=== PATIENT | male | born 1940 | race Caucasian/White ===

== ENCOUNTER → 2017-11-19 | Outpatient (CLI) | payer MEDICARE, OTHER ==
--- NOTE | 2017-11-19 14:56 | Diagnostic Imaging Report ---
PROCEDURE: X-RAY CHEST, TWO VIEWS COMPARISONS: Patients [facility], DX, CHEST 2 VIEWS, 05/22/2015, 13:13. Patients [facility], DX, CHEST 2 VIEWS, 03/02/2012, 12:59. [facility], DX, CHEST 2 VIEWS, 12/14/2013, 11:10. INDICATIONS: COUGH, SPOT ON LUNG FINDINGS: LUNGS: The lungs are mildly hyperinflated suggestive of small airways disease. Curvilinear calcification in the right upper chest is stable and suggestive of a pleural plaque. There are no infiltrates. No new findings in the lung. Pulmonary vascular markings are normal. PLEURA: No effusions or pneumothorax. HEART \T\ MEDIASTINUM: The heart is normal in size. No new findings in the mediastinum. Calcified left mediastinal mass measures 2.3 cm and is stable. BONES \T\ SOFT TISSUES: No focal osseous lesions. Soft tissues are unremarkable.. CONCLUSION: 1. Stable calcified pleural plaque. 2. Stable calcified mediastinal mass, likely lymph node. 3. Mild pulmonary hyperinflation suggestive of small airways disease. 4. No new cardiopulmonary process. Dictated by: Hallie Baig M.D. on 11/19/2017 at 14:56 Electronically approved by: Hallie Baig M.D. on 11/19/2017 at 14:56
== END ==
LOC: RAD 14:24
PROVIDERS: ATTEND Family Medicine
DX: R05 Cough (principal)
CPT/HCPCS: 71046

== ENCOUNTER 2018-05-25 09:57 | Inpatient (IN) | payer MEDICARE, OTHER ==
[~2018-05-25] VITALS: Ht 177.8 cm; Wt 95.7 kg
[2018-05-25 10:45] LABS: BASOPHILS # (AUTO) 0.1 (0.0-0.1); BASOPHILS % 0.9 % (0.0-1.0); EOSINOPHILS # (AUTO) 0.4 (0.0-0.4); EOSINOPHILS % 3.2 % (0.0-6.0); HEMATOCRIT 39.7 % (38.2-49.6); HEMOGLOBIN 12.7 g/dL (14.0-18.0); LYMPHOCYTES # (AUTO) 3.3 (1.0-3.2); LYMPHOCYTES % 25.6 % (18.0-39.1); MEAN CORPUSCULAR HEMOGLOBIN 28.5 pg (28-32); MONOCYTES # (AUTO) 0.8 (0.2-0.8); MONOCYTES % 6.2 % (4.4-11.3); NEUTROPHILS # (AUTO) 8.1 (2.1-6.9); NEUTROPHILS % 63.5 % (38.7-80.0); PLATELET COUNT 351 x10e3/uL (140-360); RED BLOOD COUNT 4.46 x10e6/uL (4.3-5.7); RED CELL DISTRIBUTION WIDTH 13.4 % (11.7-14.4)
[2018-05-25 10:49] LABS: INR 1.24; PROTHROMBIN TIME 14.7 seconds (11.9-14.5)
[2018-05-25 10:50] LABS: PARTIAL THROMBOPLASTIN TIME 25.7 seconds (23.8-35.5)
[2018-05-25 11:00] LABS: ALBUMIN 3.3 g/dL (3.5-5.0); ALBUMIN/GLOBULIN RATIO 1.1 (0.8-2.0); ANION GAP 13.7 mmol/L (8-16); CALCIUM 9.3 mg/dL (8.4-10.2); CREATININE, SERUM 1.27 mg/dL (0.72-1.25); POTASSIUM 3.7 mmol/L (3.5-5.1)
[2018-05-25 11:06] LABS: CREATINE KINASE MB 7.8 ng/mL (0-5.0)
[2018-05-25] MEDS ORDERED: SODIUM CHLORIDE 0.9% 500ML 500 ML IV ONE (11:45)
--- NOTE | 2018-05-25 12:32 | Diagnostic Imaging Report ---
EXAMINATION: CHEST 2 VIEWS INDICATION: \S\ORDER PLACED BY \[id number] \S\1114 \S\Y COMPARISON: Chest radiograph 11/19/2017 FINDINGS: PA and lateral views TUBES and LINES: None. LUNGS: Lungs are well inflated. Bilateral interstitial edema. More confluent reticular opacities in the left lower lobe. Subsegmental atelectasis in both lung bases. PLEURA: No pleural effusion or pneumothorax. HEART AND MEDIASTINUM: The cardiomediastinal silhouette is unremarkable. BONES AND SOFT TISSUES: No acute osseous lesion. Soft tissues are unremarkable. UPPER ABDOMEN: No free air under the diaphragm. IMPRESSION: Bilateral interstitial edema. More confluent reticular opacities in the left lower lobe may represent superimposed infection. Continue to follow-up. Signed by: Dr. Gisell Ashley M.D. on 05/25/2018 12:28 PM
[2018-05-25] MEDS ORDERED: SODIUM CHLORIDE 0.9% 500ML 500 ML ONE (13:06)
[2018-05-25] MEDS ORDERED: AZITHROMYCIN 500MG/NS 250 ML 250 ML IV STA (13:18)
--- NOTE | 2018-05-25 13:20 | Cardiology Report ---
DATE OF STUDY: May 25, 2018 DOPPLER SCAN OF THE RIGHT LEG VEINS ATTENDING PHYSICIAN: Dr. Jovita Zamora. The right posterior tibial veins were poorly visualized. Elsewhere in the right leg, the veins appear to be compressible without definite deep venous thrombosis. The left leg was not studied. CONCLUSIONS: 1. The right leg below the knee is poorly visualized, particularly in the right posterior tibial veins. Deep venous thrombosis in these areas cannot be completely excluded. 1. Elsewhere in the right leg, there were no definite deep venous thromboses. 2. The left leg was not studied. Job#: [id number] EV cc:JOVITA ZAMORA MD
[2018-05-25 13:30] LABS: CLARITY,URINE CLEAR (CLEAR); COLOR,URINE YELLOW (YELLOW); LEUKOCYTE ESTERASE ,URINE TRACE (NEGATIVE)
[2018-05-25] MEDS ORDERED: FUROSEMIDE INJ 10 MG/ML 4 ML VIAL IV ONE (13:30)
[2018-05-25] MEDS ORDERED: SODIUM CHLORIDE FLUSH 10 ML SYR INJ PRN (13:30)
[2018-05-25] MEDS ORDERED: CEFTRIAXONE SOD 1 GM VIAL IV ONE (13:30)
[2018-05-25 13:31] LABS: BILIRUBIN,URINE NEGATIVE (NEGATIVE); EPITHELIAL CELLS,URINE RARE /LPF; KETONES,URINE NEGATIVE (NEGATIVE); NITRITE,URINE NEGATIVE (NEGATIVE); PROTEIN,URINE DIPSTICK NEGATIVE (NEGATIVE); URINE UROBILINOGEN 0.2 mg/dL (0.2 - 1); WBC,URINE (MAN) 0-5 /HPF (0-5)
[2018-05-25 19:14] LABS: CREATINE KINASE MB 6.9 ng/mL (0-5.0)
[2018-05-25 20:00] VITALS: BP 188/86
[2018-05-25] MEDS: FUROSEMIDE INJ 10 MG/ML 4 ML VIAL IV SCH (20:09)
[2018-05-25] MEDS: METOPROLOL TARTRATE 25 MG TAB PO SCH (21:20)
[2018-05-26] VITALS (7 sets, daily range): BP systolic 148–174; BP diastolic 67–83
[2018-05-26 05:42] LABS: BASOPHILS # (AUTO) 0.1 (0.0-0.1); BASOPHILS % 0.9 % (0.0-1.0); EOSINOPHILS # (AUTO) 0.6 (0.0-0.4); EOSINOPHILS % 4.4 % (0.0-6.0); HEMATOCRIT 39.4 % (38.2-49.6); HEMOGLOBIN 12.6 g/dL (14.0-18.0); LYMPHOCYTES # (AUTO) 3.7 (1.0-3.2); LYMPHOCYTES % 28.5 % (18.0-39.1); MEAN CORPUSCULAR HEMOGLOBIN 28.4 pg (28-32); MEAN CORPUSCULAR VOLUME 88.7 fL (81-99); MONOCYTES # (AUTO) 1.1 (0.2-0.8); MONOCYTES % 8.1 % (4.4-11.3); NEUTROPHILS # (AUTO) 7.5 (2.1-6.9); NEUTROPHILS % 57.6 % (38.7-80.0); PLATELET COUNT 321 x10e3/uL (140-360); RED BLOOD COUNT 4.44 x10e6/uL (4.3-5.7); RED CELL DISTRIBUTION WIDTH 13.8 % (11.7-14.4)
[2018-05-26 06:12] LABS: ALBUMIN 3.2 g/dL (3.5-5.0); ALBUMIN/GLOBULIN RATIO 1.1 (0.8-2.0); ANION GAP 13.6 mmol/L (8-16); CALCIUM 9.2 mg/dL (8.4-10.2); CREATININE, SERUM 1.32 mg/dL (0.72-1.25); POTASSIUM 3.6 mmol/L (3.5-5.1)
--- NOTE | 2018-05-26 06:27 | Diagnostic Imaging Report ---
CHEST SINGLE (PORTABLE), 05/26/2018 7:00 AM Technique: CHEST SINGLE (PORTABLE) Comparison: 05/25/2018 Clinical history: Shortness of breath Findings: See Impression Impression: 1. Stable prominent cardiac silhouette. 2. Diffuse interstitial opacities, favor edema. 3. Suspected trace pleural effusions. Signed by: Dr Chiqui Sarmiento MD on 05/26/2018 6:24 AM
[2018-05-26 06:36] LABS: CREATINE KINASE MB 5.3 ng/mL (0-5.0)
[2018-05-26] MEDS: FUROSEMIDE INJ 10 MG/ML 4 ML VIAL IV SCH ×2 (09:40→17:14)
[2018-05-26] MEDS: METOPROLOL TARTRATE 25 MG TAB PO SCH ×2 (09:40→21:33)
[2018-05-26] MEDS: LOSARTAN POTASSIUM 100 MG TAB PO SCH (12:31)
--- NOTE | 2018-05-26 13:40 | Consultation ---
DATE OF CONSULTATION: May 26, 2018 CARDIOLOGY CONSULTATION ATTENDING PHYSICIAN: Dr. Juan R Thompson. CHIEF COMPLAINT: Mr. Monte is a pleasant 78-year-old man known to me for many years, who presented to the emergency room on the with a complaint of shortness of breath. HISTORY OF PRESENT ILLNESS: The patient is a relatively poor historian and reports that he has become progressively short of breath in the last week or so. Denied any chest pain or palpitations. No fever or chills. He adds that he decided he would start using his CPAP machine, which he has at home for sleep apnea but really does not use at all. PAST MEDICAL HISTORY: Complex including hypertension, hyperlipidemia. He had polio at age 6 affecting his left leg. He had coronary stents placed in 2006 and longstanding hypertension. He has been exposed to asbestos at work. He was hospitalized at [facility] in 2006 for "congestive heart failure" but evidently was significant also for renal insufficiency in 2008. FAMILY HISTORY: Both parents are . Mother lived to be age 98. HOME MEDICATIONS: Included bupropion 300 mg once a day, omeprazole 40 mg daily, allopurinol 300 mg daily, furosemide 40 mg daily, atorvastatin changed to Antara/fenofibrate, clopidogrel 75 mg daily, carvedilol 3.125 mg twice a day, and valsartan-hydrochlorothiazide 160/25. He has previously used albuterol and Flovent. REVIEW OF SYSTEMS: GENERAL: Patient reports he has gained some considerable weight from snacking frequently and naturally with reduced mobility. CARDIAC: He denies that he had ankle edema but has trouble seeing his feet due to his central obesity. Does not trim his nails and wears house shoes at home. PHYSICAL EXAMINATION: GENERAL: At this time shows an obese man with shoulder-length hair, sitting up at bedside after filling his urinal. VITALS: Blood pressure is 158/72. Pulse is 70 and regular. HEENT: Otherwise unremarkable. THORAX: Heart sounds S1 and S2 are equal. No murmurs. Lungs have faint crackles at the bases. ABDOMEN: Markedly protuberant. EXTREMITIES: Have 4+ edema of his ankles and both feet. His left heel is in a foot protector. PERTINENT LABORATORY DATA: Shows BNP is 252 and 234. Troponins are normal times 3. His creatinine is reported at 1.27 and 1.3. Blood culture is reported positive for gram positive cocci. ASSESSMENT: 1. Clinical congestive heart failure with previous echocardiogram showing ejection fraction of 55% to 60%. 2. Hypertension. 3. Renal insufficiency, mild. 4. Sleep apnea and noncompliant, not previously using continuous positive airway pressure until the last week or so. 5. Obesity. 6. Gram-positive blood cultures. PLAN: Agree with diuresis, antibiotics, and resuming nasal CPAP for sleep. Will elevate legs and monitor hypertension. Will check echocardiogram. Thank you for asking me to see him in consultation. Job#: [id number] EV cc:MD EZEKIEL PUGA MD
[2018-05-26] MEDS: CEFTRIAXONE SOD 1 GM VIAL IV SCH (13:55)
[2018-05-26] MEDS ORDERED: SODIUM CHLORIDE 0.9% 250ML 250 ML ONE (14:39)
[2018-05-26] MEDS: AZITHROMYCIN 250MG/NS 100 ML 100 ML IV SCH (15:06)
[2018-05-26] MEDS: ACETAMINOPHEN 325 MG TAB PO PRN (20:00)
[2018-05-27] VITALS (9 sets, daily range): BP systolic 109–170; BP diastolic 53–89
[2018-05-27] MEDS: ACETAMINOPHEN 325 MG TAB PO PRN ×2 (02:30→12:53)
[2018-05-27 05:42] LABS: BASOPHILS # (AUTO) 0.2 (0.0-0.1); BASOPHILS % 0.8 % (0.0-1.0); EOSINOPHILS # (AUTO) 0.6 (0.0-0.4); EOSINOPHILS % 3.5 % (0.0-6.0); HEMOGLOBIN 13.6 g/dL (14.0-18.0); LYMPHOCYTES # (AUTO) 4.8 (1.0-3.2); LYMPHOCYTES % 26.9 % (18.0-39.1); MEAN CORPUSCULAR HEMOGLOBIN 28.4 pg (28-32); MEAN CORPUSCULAR HGB CONC 31.6 g/dL (31-35); MEAN CORPUSCULAR VOLUME 89.8 fL (81-99); MONOCYTES # (AUTO) 1.5 (0.2-0.8); MONOCYTES % 8.2 % (4.4-11.3); NEUTROPHILS # (AUTO) 10.7 (2.1-6.9); PLATELET COUNT 328 x10e3/uL (140-360); RED BLOOD COUNT 4.79 x10e6/uL (4.3-5.7); RED CELL DISTRIBUTION WIDTH 13.8 % (11.7-14.4)
[2018-05-27 06:11] LABS: ANION GAP 14.4 mmol/L (8-16); CALCIUM 9.7 mg/dL (8.4-10.2); CREATININE, SERUM 1.34 mg/dL (0.72-1.25); POTASSIUM 3.4 mmol/L (3.5-5.1)
[2018-05-27] MEDS: METOPROLOL TARTRATE 25 MG TAB PO SCH ×2 (09:00→20:42)
[2018-05-27] MEDS: FUROSEMIDE INJ 10 MG/ML 4 ML VIAL IV SCH ×2 (09:26→17:22)
[2018-05-27] MEDS: LOSARTAN POTASSIUM 100 MG TAB PO SCH (09:26)
[2018-05-27] MEDS: CEFTRIAXONE SOD 1 GM VIAL IV SCH (12:53)
[2018-05-27] MEDS ORDERED: SODIUM CHLORIDE 0.9% 250ML 250 ML ONE (16:43)
[2018-05-27] MEDS ORDERED: POTASSIUM CHLORIDE 20 MEQ TAB CR PO STA (16:52)
[2018-05-27] MEDS: AZITHROMYCIN 250MG/NS 100 ML 100 ML IV SCH (17:22)
[2018-05-28] VITALS (7 sets, daily range): BP systolic 109–161; BP diastolic 63–79
[2018-05-28] MEDS: ACETAMINOPHEN 325 MG TAB PO PRN (02:45)
[2018-05-28 05:17] LABS: BASOPHILS # (AUTO) 0.1 (0.0-0.1); BASOPHILS % 0.6 % (0.0-1.0); EOSINOPHILS # (AUTO) 0.4 (0.0-0.4); EOSINOPHILS % 2.7 % (0.0-6.0); HEMATOCRIT 38.6 % (38.2-49.6); HEMOGLOBIN 12.3 g/dL (14.0-18.0); LYMPHOCYTES # (AUTO) 3.4 (1.0-3.2); LYMPHOCYTES % 20.9 % (18.0-39.1); MEAN CORPUSCULAR HEMOGLOBIN 28.1 pg (28-32); MEAN CORPUSCULAR HGB CONC 31.9 g/dL (31-35); MEAN CORPUSCULAR VOLUME 88.1 fL (81-99); MONOCYTES # (AUTO) 1.5 (0.2-0.8); MONOCYTES % 9.4 % (4.4-11.3); NEUTROPHILS # (AUTO) 10.6 (2.1-6.9); NEUTROPHILS % 65.3 % (38.7-80.0); PLATELET COUNT 309 x10e3/uL (140-360); RED BLOOD COUNT 4.38 x10e6/uL (4.3-5.7); RED CELL DISTRIBUTION WIDTH 14.1 % (11.7-14.4)
[2018-05-28 05:49] LABS: ANION GAP 14.5 mmol/L (8-16); CALCIUM 9.5 mg/dL (8.4-10.2); CREATININE, SERUM 1.19 mg/dL (0.72-1.25); POTASSIUM 3.5 mmol/L (3.5-5.1)
[2018-05-28 07:30] LABS: EOSINOPHILS % (MANUAL) 5 % (0-7); LYMPHOCYTES % (MANUAL) 12 % (19-48); MONOCYTES % (MANUAL) 6 % (3.4-9.0); NEUTROPHILS % (MANUAL) 77 % (40-74)
[2018-05-28 07:31] LABS: HYPOCHROMASIA SLIGHT; RBC MORPHOLOGY COMMENT NORMAL
[2018-05-28 07:32] LABS: ANISOCYTOSIS SLIGHT; PLATELET ESTIMATE ADEQUATE; PLATELET MORPHOLOGY COMMENT NORMAL
[2018-05-28] MEDS: METOPROLOL TARTRATE 25 MG TAB PO SCH ×2 (07:59→21:00)
[2018-05-28] MEDS: FUROSEMIDE INJ 10 MG/ML 4 ML VIAL IV SCH ×2 (07:59→16:14)
[2018-05-28] MEDS: LOSARTAN POTASSIUM 100 MG TAB PO SCH (07:59)
--- NOTE | 2018-05-28 08:06 | Consultation ---
DATE OF CONSULTATION: May 28, 2018 REASON FOR CONSULTATION: Bilateral foot examination. HISTORY OF PRESENT ILLNESS: This is a 78-year-old man with a past medical history of hypertension, hyperlipidemia, congestive heart failure, who was admitted through the emergency room for shortness of breath. He has been admitted for workup. Podiatry has been consulted for long thickened toenails and general foot evaluation. The patient currently denies nausea, vomiting, fever, chills, chest pain, but does complain of shortness of breath. PAST MEDICAL HISTORY: Hypertension, hyperlipidemia, polio. FAMILY HISTORY: Noncontributory. MEDICATIONS: Per the chart. ALLERGIES: NO KNOWN ALLERGIES. REVIEW OF SYSTEMS: The patient currently relates his shortness of breath, but denies nausea, vomiting, fever, chills, or chest pain. PHYSICAL EXAMINATION GENERAL: Alert and oriented times 3 and in no apparent distress. VITAL SIGNS: Today, temperature is 98, heart rate 60, respiratory rate 18, blood pressure 109/74, pulse ox 97% on room air. LOWER EXTREMITY PHYSICAL EXAMINATION VASCULAR: Dorsalis pedis and posterior tibial pulses are faintly palpable. Capillary refill time is approximately 4-5 seconds to all digits. Moderate edema is noted to the left lower extremity. Negative erythema. Negative warmth. NEUROLOGICAL: Sensation appears to be intact to bilateral lower extremities to light touch. MUSCULOSKELETAL: Muscle atrophy to the left lower extremity distal to the knee joint. DERMATOLOGIC: Nails are thickened, dystrophic, yellow with subungual debris. There is dry, flaky xerosis to bilateral lower extremities. LABS: White blood cell count is 16.2, hemoglobin 12.3, hematocrit 38.6, and platelet count is 309,000. Sodium 142, potassium 3.5, chloride 99, CO2 32, BUN 18, creatinine 1.1, glucose 109. ASSESSMENT 1. Onychomycosis with severe xerosis. 2. Congestive heart failure. 3. Hypertension. PLAN: The patient was seen and evaluated. Discussed condition and treatment options with the patient in detail. Discussed with the patient will bring instrumentation for nail debridement and perform either later this afternoon or early tomorrow morning. There are no local acute signs of infection to bilateral lower extremities. The patient has polio to the left lower extremity, which resulted in muscle atrophy and weakness. Discussed with the patient long-term care. The patient will need regular long-term care in the office as far as nail debridements and possible bracing to the left lower extremity. The podiatry service will continue to monitor as an inpatient. Job#: [id number] RI
[2018-05-28] MEDS ORDERED: FUROSEMIDE40 MG PO (12:23)
[2018-05-28] MEDS ORDERED: PLAVIX75 MG PO (12:27)
[2018-05-28] MEDS ORDERED: ALLOPURINOL300 MG PO (12:27)
[2018-05-28] MEDS ORDERED: HYDROCHLOROTHIA25 MG PO (12:27)
[2018-05-28] MEDS ORDERED: BUPROPION XL150 MG PO (12:27)
[2018-05-28] MEDS ORDERED: VITAMIN D1000 UNI1 PO (12:27)
[2018-05-28] MEDS ORDERED: DIOVAN160 MG PO (12:27)
[2018-05-28] MEDS: AZITHROMYCIN 250MG/NS 100 ML 100 ML IV SCH (13:17)
[2018-05-28] MEDS: CEFTRIAXONE SOD 1 GM VIAL IV SCH (13:17)
[2018-05-28] MEDS ORDERED: NORCO 10-325 T1 EACH PO (15:18)
[2018-05-28] MEDS: HYDROCODONE/APAP 10MG-325MG TAB PO PRN ×2 (16:15→23:08)
--- NOTE | 2018-05-28 17:15 | Diagnostic Imaging Report ---
LEFT ELBOW - 3 VIEWS HISTORY: Pain, status post fall 5 weeks ago COMPARISON: None available. FINDINGS: Bones: No acute displaced fracture. Small olecranon and medial humeral epicondyle enthesophyte. Joints: Moderate degenerative changes of the elbow. Soft tissues: Nonspecific soft tissue swelling overlying the olecranon process. Punctate nonspecific calcification medial to the distal humerus, likely the sequela of remote trauma. IMPRESSION: 1. Dorsal soft tissue prominence, correlate for olecranon bursitis. 2. Moderate osteoarthrosis. 3. Chronic enthesopathic changes. Signed by: Dr. James Novak D.O., M.M.M. on 05/28/2018 5:11 PM
[2018-05-28] MEDS ORDERED: ERTAPENEM 1GM/NS 100ML 100 ML IV SCH (17:30)
[2018-05-28] MEDS: ERTAPENEM 1GM/NS 100ML 100 ML IV SCH (18:43)
[2018-05-29] VITALS (8 sets, daily range): BP systolic 132–170; BP diastolic 59–74
[2018-05-29] MEDS: HYDROCODONE/APAP 10MG-325MG TAB PO PRN ×3 (05:10→20:58)
[2018-05-29 06:05] LABS: BASOPHILS # (AUTO) 0.1 (0.0-0.1); BASOPHILS % 0.9 % (0.0-1.0); EOSINOPHILS # (AUTO) 0.5 (0.0-0.4); EOSINOPHILS % 3.7 % (0.0-6.0); HEMATOCRIT 38.1 % (38.2-49.6); HEMOGLOBIN 11.9 g/dL (14.0-18.0); LYMPHOCYTES # (AUTO) 3.9 (1.0-3.2); LYMPHOCYTES % 26.8 % (18.0-39.1); MEAN CORPUSCULAR HEMOGLOBIN 27.7 pg (28-32); MEAN CORPUSCULAR HGB CONC 31.2 g/dL (31-35); MEAN CORPUSCULAR VOLUME 88.8 fL (81-99); MONOCYTES # (AUTO) 1.7 (0.2-0.8); MONOCYTES % 11.6 % (4.4-11.3); NEUTROPHILS # (AUTO) 8.2 (2.1-6.9); NEUTROPHILS % 56.6 % (38.7-80.0); PLATELET COUNT 269 x10e3/uL (140-360); RED BLOOD COUNT 4.29 x10e6/uL (4.3-5.7); RED CELL DISTRIBUTION WIDTH 14.1 % (11.7-14.4)
[2018-05-29 06:22] LABS: ANION GAP 13.5 mmol/L (8-16); CALCIUM 9.6 mg/dL (8.4-10.2); CREATININE, SERUM 1.2 mg/dL (0.72-1.25); POTASSIUM 3.5 mmol/L (3.5-5.1)
--- NOTE | 2018-05-29 08:18 | Progress Note ---
DATE: May 29, 2018 SUBJECTIVE: This is a 78-year-old male with past medical history of hypertension, hyperlipidemia, congestive heart failure, who was admitted through the emergency room for shortness of breath. Podiatry was consulted yesterday for long, thickened nails. I am here today for debridement of the toenails. The patient has no nausea, vomiting, fever, chills, chest pain or shortness of breath today. He relates significant improvement. No acute issues overnight. OBJECTIVE: Vital signs today: Temperature is 97.8, heart rate 66, respiratory rate 18, blood pressure 132/59. Pulse ox is 97% on 2 L nasal cannula. PROBLEM-FOCUSED LOWER EXTREMITY PHYSICAL EXAMINATION VASCULAR: Dorsalis pedis and posterior tibial pulses are faintly palpable. Capillary refill time is approximately 4-5 seconds to all digits. Moderate edema is noted to the left lower extremity. Negative erythema. Negative warmth. NEUROLOGICAL: Sensation appears to be intact to bilateral lower extremities. MUSCULOSKELETAL: Muscle atrophy to the left lower extremity distal to the knee joint. DERMATOLOGIC: Nails are thickened, dystrophic, yellow with subungual debris. There is dry, flaky xerosis to bilateral lower extremities. LABS: White blood cell count is 14.4, hemoglobin 11.9, hematocrit 38.1, and platelet count is 269. Sodium 142, potassium 3.5, chloride 101, BUN 21, creatinine 1.2. ASSESSMENT 1. Onychomycosis with severe xerosis. 2. Congestive heart failure. 3. Hypertension. PLAN: The patient was seen and evaluated. Discussed condition and treatment options with the patient in detail. The nails were trimmed and debrided in length and thickness 1 through 5 bilateral. Prior to that, the feet were prepped with alcohol. Post, they were cleansed with Hibiclens scrub. I discussed with the patient that I would recommend routine followup care for nail debridements approximately once every 3 to 4 months. The patient is stable from a podiatry standpoint to be discharged. Podiatry will be signing off. Please reconsult if necessary. Job#: [id number]
[2018-05-29] MEDS: FUROSEMIDE INJ 10 MG/ML 4 ML VIAL IV SCH ×2 (09:25→17:23)
[2018-05-29] MEDS: LOSARTAN POTASSIUM 100 MG TAB PO SCH (09:25)
[2018-05-29] MEDS: METOPROLOL TARTRATE 25 MG TAB PO SCH ×2 (09:26→20:58)
[2018-05-29 09:29] LABS: EOSINOPHILS % (MANUAL) 4 % (0-7); LYMPHOCYTES % (MANUAL) 17 % (19-48); MONOCYTES % (MANUAL) 10 % (3.4-9.0); NEUTROPHILS % (MANUAL) 67 % (40-74); PLATELET ESTIMATE ADEQUATE
[2018-05-29 09:30] LABS: ANISOCYTOSIS MODERATE; PLATELET MORPHOLOGY COMMENT FEW GIANT; POIKILOCYTOSIS SLIGHT; RBC MORPHOLOGY COMMENT NORMAL
--- NOTE | 2018-05-29 11:45 | Diagnostic Imaging Report ---
EXAMINATION: PA and lateral views of the chest. COMPARISON: Portable chest 05/26/2018 and chest two views 05/25/2018 CLINICAL HISTORY: Shortness of breath DISCUSSION: Lines/tubes: None. Lungs: The lungs are well inflated. Patchy opacity in the right lower lobe, likely reflects atelectasis. There is no evidence of consolidation or pulmonary edema. Pleura: Blunting of the right and left posterior costophrenic sulci. Heart and mediastinum: Cardiac silhouette is borderline enlarged. Pulmonary vasculature is normal. Bones and soft tissues: No acute bony abnormalities. Degenerative changes in the thoracic spine IMPRESSION: 1. Blunting of the right and left posterior costophrenic sulci, likely reflecting small volume pleural effusions. 2. Patchy right lower lobe atelectatic changes. Signed by: Dr. Brandon Vega M.D. on 05/29/2018 11:42 AM
[2018-05-29] MEDS: AZITHROMYCIN 250MG/NS 100 ML 100 ML IV SCH (14:10)
[2018-05-29] MEDS: CEFTRIAXONE SOD 1 GM VIAL IV SCH (14:14)
[2018-05-29] MEDS: ERTAPENEM 1GM/NS 100ML 100 ML IV SCH (18:54)
[2018-05-30 00:49] VITALS: BP 137/62
[2018-05-30] MEDS: HYDROCODONE/APAP 10MG-325MG TAB PO PRN ×2 (04:15→11:15)
[2018-05-30 05:53] VITALS: BP 161/72
[2018-05-30 07:25] VITALS: BP 164/72
[2018-05-30 07:46] VITALS: BP 164/72
[2018-05-30] MEDS: FUROSEMIDE INJ 10 MG/ML 4 ML VIAL IV SCH (09:15)
[2018-05-30] MEDS: LOSARTAN POTASSIUM 100 MG TAB PO SCH (09:16)
[2018-05-30] MEDS: METOPROLOL TARTRATE 25 MG TAB PO SCH (09:16)
[2018-05-30 11:25] VITALS: BP 137/75
[2018-05-30] MEDS: CEFTRIAXONE SOD 1 GM VIAL IV SCH (13:30)
[2018-05-30] MEDS: AZITHROMYCIN 250MG/NS 100 ML 100 ML IV SCH (13:45)
--- NOTE | 2018-05-30 14:37 | Discharge Summary ---
ADMIT DIAGNOSES 1. Ocayq-iu-irkquqf diastolic congestive heart failure. 2. Hypertensive heart disease. 3. Sepsis secondary to urinary tract infection. 4. Sepsis secondary to left lower lobe pneumonia. 5. Tmkcj-vj-nnqezuv renal failure. 6. Postpolio syndrome. DISCHARGE DIAGNOSES 1. Sepsis secondary to Proteus mirabilis urinary tract infection, resolving. 2. Proteus mirabilis urinary tract infection. 3. Left lower lobe pneumonia, likely gram-negative jazmyn, resolving. 4. Iujme-yq-hglkuwo renal failure, resolving. 5. Aflnu-vn-ixrgfvs diastolic congestive heart failure (preserved left ventricular ejection fraction). 6. Hypertensive heart disease. 7. Postpolio syndrome. HOSPITAL COURSE: This is a 78-year-old white man who was initially admitted to [facility] with a diagnosis of unzue-ki-pmrbpvt diastolic congestive heart failure and sepsis from a urinary tract infection. During this hospitalization, the patient was diagnosed with left lower lobe pneumonia likely gram-negative jazmyn in etiology. The patient improved clinically with intravenous antibiotics, namely ertapenem, ceftriaxone and azithromycin. During this hospitalization, urine culture did reveal the presence of Proteus mirabilis, which was actually found to be pansensitive. The antibiotic with the lowest minimal inhibitory concentration was actually ceftriaxone. During this hospitalization, blood cultures did reveal gram-positive cocci in clusters, but the growth revealed staphylococcus species coagulase-negative, which was thought to be perhaps a skin contaminate. During this hospitalization, the patient had a 2-D echocardiogram which revealed a preserved left ventricular ejection fraction of 55% to 60%. He was seen by helper marble finisher during this hospitalization, namely Dr. Hamilton Carmona. The patient's hospitalization was unremarkable. The patient's condition on discharge was stable. DISCHARGE MEDICATIONS 1. Hydrocodone with acetaminophen 10 per 325 mg 1 every 6 hours p.r.n. pain. 2. Losartan 50 mg a day. 3. Metoprolol tartrate 25 mg b.i.d. 4. Furosemide 40 mg intravenous b.i.d. 5. Ertapenem 1 g intravenously daily. 6. Ceftriaxone 1 g intravenously every 24 hours. 7. Azithromycin 500 mg intravenously every 24 hours. 8. Acetaminophen 650 mg p.o. q.4 h. p.r.n. pain and fever. FOLLOWUP INSTRUCTIONS: As previously stated, the patient will be transferred to a local long-term acute care facility, namely [facility] where the patient can be treated with intravenous antibiotics in regards to her Proteus mirabilis urinary tract infection and left lower lobe gram-negative pneumonia. Also, the patient will receive intravenous furosemide for his bfvtv-ea-wdmcmwu congestive heart failure. BRISEIDA NERI MD Job#: [id number] RI cc: MD EDDIE PUGA MD MTDD
[2018-05-30 15:52] VITALS: BP 103/51
--- OUTSIDE RECORDS SUMMARY | 2018-06-25 05:45 | XMS REPORT ---
Author Author [facility] Address Unknown Phone Unavailable Care Team Providers Care Flow Coordinator Name Role Phone MILY BOOGIE Unavailable Unavailable EZEKIEL OWEN Unavailable Unavailable Problems This patient has no known problems. Allergies, Adverse Reactions, Alerts This patient has no known allergies or adverse reactions. Medications This patient has no known medications. Results Test Description Test Time Test Comments Text Results Atomic Results Result Comments CHEST 2 VIEWS 2018-05-29 11:39:00 [place] [address] Patient Name: DAY DELA CRUZ MR #: [id number] : 1940 Age/Sex: 78/M Req #: [id number] [facility] Physician: MILY BOOGIE MD Ordered by: MILY BOOGIE MD Report #: [id number] Location: [facility] Room/Bed: [facility] Procedure: [id number] DX/CHEST 2 VIEWS Exam Date: 04/08 Exam Time: 1115 REPORT STATUS: Signed EXAMINATION: PA and lateral views of the chest. COMPARISON: Portable chest 05/26/2018 and chest two views 05/25/2018 CLINICAL HISTORY: Shortness of breath DISCUSSION: Lines/tubes: None. Lungs: The lungs are well inflated. Patchy opacity in the right lower lobe, likely reflects atelectasis. There is no evidence of consolidation or pulmonary edema. Pleura: Blunting of the right and left posterior costophrenic sulci. Heart and mediastinum: Cardiac silhouette is borderline enlarged. Pulmonary vasculature is normal. Bones and soft tissues: No acute bony abnormalities. Degenerative changes in the thoracic spine IMPRESSION: 1. Blunting of the right and left posterior costophrenic sulci, likely reflecting small volume pleural effusions. 2. Patchy right lower lobe atelectatic changes. Signed by: Dr. Brandon Vega M.D. on 05/29/2018 11:42 AM Dictated By: BRANDON VEGA MD 1142 Transcribed By: TIMOTHY on 05/29/18 1142 COPY TO: MILY BOOGIE MD ELBOW LEFT COMPLETE 2018-05-28 17:08:00 [place] [address] Patient Name: DAY DELA CRUZ MR #: [id number] : 1940 Age/Sex: 78/M Req #: [id number] Adm Physician: MILY BOOGIE MD Ordered by: EDDIE DIAZ MD Report #: [id number] Location: [facility] Room/Bed: [facility] Procedure: [id number] DX/ELBOW LEFT COMPLETE Exam Date: 05/28/18 Exam Time: 1630 REPORT STATUS: Signed LEFT ELBOW - 3 VIEWS HISTORY: Pain, status post fall 5 weeks ago COMPARISON: None available. FINDINGS: Bones: No acute displaced fracture. Small olecranon and medial humeral epicondyle enthesophyte. Joints: Moderate degenerative changes of the elbow. Soft tissues: Nonspecific soft tissue swelling overlying the olecranon process. Punctate nonspecific calcification medial to the distal humerus, likely the sequela of remote trauma. IMPRESSION: 1. Dorsal soft tissue prominence, correlate for olecranon bursitis. 2. Moderate osteoarthrosis. 3. Chronic enthesopathic changes. Signed by: Dr. James Novak D.O., M.M.M. on 05/28/2018 5:11 PM Dictated By: JAMES NOVAK DO 10 Transcribed By: TIMOTHY on 05/28/181710 COPY TO: EDDIE DIAZ MD CHEST SINGLE (PORTABLE) 2018-05-26 06:22:00 [place] [address] Patient Name: DAY DELA CRUZ MR #: [id number] : 1940 Age/Sex: 78/ M Req #: [id number] Adm Physician: MILY BOOGIE MD Ordered by: LARA BURDEN ROLLER TURNER Report #: [id number] Location: MED/SURG3 Room/Bed: [facility] Procedure: [id number] DX/CHEST SINGLE ( PORTABLE) Exam Date: 05/26/18 Exam Time: 529 REPORT STATUS: Signed CHEST SINGLE (PORTABLE), 05/26/2018 7:00 AM Technique: CHEST SINGLE (PORTABLE) Comparison: 05/25/2018 Clinical history: Shortness of breath Findings: See Impression Impression: 1. Stable prominent cardiac silhouette. 2. Diffuse interstitial opacities, favor edema. 3. Suspected trace pleural effusions. Signed by: Dr Kevin Sarmiento MD on 05/26/2018 6:24 AM Dictated By: KEVIN SARMIENTO MD 3 Transcribed By: TIMOTHY on 05/26 COPY TO: LARA BURDEN ROLLER TURNER VENOUS DUPLEX LWR U/L 2018-05-25 13:00:00 [place] [address] Patient Name : DAY DELA CRUZ MR #: [id number] : 1940 Age/ Sex: 78/M Adm Physician : MILY BOOGIE MD Admit Date : 05/25/18 Location : MED/SURG3 Room/Bed : [facility] REPORT: Cardiology Report DATE OF STUDY : May 25, 2018 DOPPLER SCAN OF THE RIGHT LEG VEINS ATTENDING PHYSICIAN: Dr. Jovita Zamora. The right posterior tibial veins were poorly visualized. Elsewhere in the right leg, the veins appear to be compressible without definite deep venous thrombosis. The left leg was not studied. CONCLUSIONS: 1. The right leg below the knee is poorly visualized, particularly in the right posterior tibial veins. Deep venous thrombosis in these areas cannot be completely excluded. 1. Elsewhere in the right leg , there were no definite deep venous thromboses. 2. The left leg was not studied. Job#: [id number] EV cc: JOVITA ZAMORA MD Signature Date Dictated By: EZEQUIEL DARLING MD Transcribed By: BRANDON on 05/25/18 < Electronically signed by EZEQUIEL DARLING MD><<Signature on File>>05/26/18939 COPY TO: CHEST 2 VIEWS 2018-05-25 12:27:00 [place] [address] Patient Name: DAY DELA CRUZ MR #: [id number] : 1940 Age/Sex: 78/M Req #: [id number] Adm Physician: Ordered by: LARA BURDEN ROLLER TURNER Report #: [id number] Location: ER Room/Bed: __ Procedure: [id number] DX/CHEST 2 VIEWS Exam Date: 05/25/18 Exam Time: 1114 REPORT STATUS: Signed EXAMINATION: CHEST 2 VIEWS INDICATION: COMPARISON: Chest radiograph 11/19/2017 FINDINGS: PA and lateral views TUBES and LINES: None. LUNGS: Lungs are well inflated. Bilateral interstitial edema. More confluent reticular opacities in the left lower lobe. Subsegmental atelectasis in both lung bases. PLEURA: No pleural effusion or pneumothorax. HEART AND MEDIASTINUM: The cardiomediastinal silhouette is unremarkable. BONES AND SOFT TISSUES: No acute osseous lesion. Soft tissues are unremarkable. UPPER ABDOMEN: No free air under the diaphragm. IMPRESSION: Bilateral interstitial edema. More confluent reticular opacities in the left lower lobe may represent superimposed infection. Continue to follow-up. Signed by: Dr. Gisell Pond M.D. on 05/25/2018 12:28 PM Dictated By: GISELL POND MD 1228 Transcribed By: TIMOTHY on 05/25/18 1228 COPY TO: LARA BURDEN NP CHEST 2 VIEWS [place] [address] Patient Name: DAY DELA CRUZ MR #: [id number] : 1940 Age/Sex: 77/M Req # : [id number] Adm Physician: Ordered by: EZEKIEL OWEN MD Report #: [id number] Location: [facility] Room/Bed: Procedure: [id number] DX/CHEST 2 VIEWS Exam Date: 11/19/17 Exam Time: 1430 REPORT STATUS: Signed PROCEDURE: X-RAY CHEST, TWO VIEWS COMPARISONS: [facility], DX, CHEST 2 VIEWS, 05/22/2015, 13:13. [facility], DX, CHEST 2 VIEWS, 03/02/2012, 12:59. [facility], DX, CHEST 2 VIEWS, 12/14/2013, 11:10. INDICATIONS: COUGH , SPOT ON LUNG FINDINGS: LUNGS: The lungs are mildly hyperinflated suggestive of small airways disease. Curvilinear calcification in the right upper chest is stable and suggestive of a pleural plaque. There are no infiltrates. No new findings in the lung. Pulmonary vascular markings are normal. PLEURA: No effusions or pneumothorax. HEART T MEDIASTINUM: The heart is normal in size. No new findings in the mediastinum. Calcified left mediastinal mass measures 2.3 cm and is stable. BONES T SOFT TISSUES: No focal osseous lesions. Soft tissues are unremarkable.. CONCLUSION: 1. Stable calcified pleural plaque. 2. Stable calcified mediastinal mass, likely lymph node. 3. Mild pulmonary hyperinflation suggestive of small airways disease. 4. No new cardiopulmonary process. Dictated by: Jolanta Baig M.D. on 2017 at 14:56 Electronically approved by: Jolanta Baig M.D. on 2017 at 14:56 Dictated By: JOLANTA BAIG MD 7256 Transcribed By : VILMA on 11/19/17 1456 COPY TO: EZEKIEL OWEN MD
== END 2018-05-30 17:15 | DRG 871 ==
LOC: ER 09:59 → ERHOLD 14:11 → MED/SURG3 15:48
PROC: 0HBRXZZ Excision of Toe Nail, External Approach (ICD-10-PCS; principal; 2018-05-29)
PROC: 0HBRXZZ Excision of Toe Nail, External Approach (ICD-10-PCS; 2018-05-29)
PROC: 0HBRXZZ Excision of Toe Nail, External Approach (ICD-10-PCS; 2018-05-29)
PROC: 0HBRXZZ Excision of Toe Nail, External Approach (ICD-10-PCS; 2018-05-29)
PROC: 0HBRXZZ Excision of Toe Nail, External Approach (ICD-10-PCS; 2018-05-29)
PROC: 0HBRXZZ Excision of Toe Nail, External Approach (ICD-10-PCS; 2018-05-29)
PROC: 0HBRXZZ Excision of Toe Nail, External Approach (ICD-10-PCS; 2018-05-29)
PROC: 0HBRXZZ Excision of Toe Nail, External Approach (ICD-10-PCS; 2018-05-29)
PROC: 0HBRXZZ Excision of Toe Nail, External Approach (ICD-10-PCS; 2018-05-29)
PROC: 0HBRXZZ Excision of Toe Nail, External Approach (ICD-10-PCS; 2018-05-29)
DX: A41.89 Other specified sepsis (principal); J15.6 Pneumonia due to other Gram-negative bacteria; I50.33 Acute on chronic diastolic (congestive) heart failure; I13.0 Hypertensive heart and chronic kidney disease with heart failure and stage 1 through stage 4 chronic kidney disease, or unspecified chronic kidney disease; N39.0 Urinary tract infection, site not specified; R65.20 Severe sepsis without septic shock; B35.1 Tinea unguium; E78.5 Hyperlipidemia, unspecified; L85.3 Xerosis cutis; N18.9 Chronic kidney disease, unspecified; G47.33 Obstructive sleep apnea (adult) (pediatric); B96.4 Proteus (mirabilis) (morganii) as the cause of diseases classified elsewhere; G14 Postpolio syndrome; Z74.09 Other reduced mobility; E66.9 Obesity, unspecified; Z68.30 Body mass index [BMI] 30.0-30.9, adult; Z91.19 Patient's noncompliance with other medical treatment and regimen; N18.3 Chronic kidney disease, stage 3 (moderate)
CPT/HCPCS: 36415; 71045; 71046; 80048; 80053; 81001; 82550; 82553; 83605; 83735; 83880; 84484; 85025; 85379; 85610; 85730; 87040; 87071; 87086; 87186; 87205; 93005; 93306; 93971; 94660; 96367; 97139; 99284; J0456; J0696; J1940; J7040; J7050

== ENCOUNTER 2020-06-12 15:24 | Inpatient (IN) | payer MEDICARE, OTHER ==
[~2020-06-12] VITALS: Ht 177.8 cm; Wt 107.8 kg
[~2020-06-12 15:24] MED LIST: ALLOPURINOL300 MG PO; BUPROPION XL150 MG PO; DIOVAN160 MG PO; FUROSEMIDE40 MG PO; HYDROCHLOROTHIA25 MG PO; NORCO 10-325 T1 EACH PO; PLAVIX75 MG PO; VITAMIN D1000 UNI1 PO
[2020-06-12 16:23] LABS: BASOPHILS # (AUTO) 0.2 (0.0-0.1); BASOPHILS % 1.2 % (0.0-1.0); EOSINOPHILS # (AUTO) 0.4 (0.0-0.4); EOSINOPHILS % 3.2 % (0.0-6.0); HEMATOCRIT 42.5 % (38.2-49.6); HEMOGLOBIN 13.2 g/dL (14.0-18.0); LYMPHOCYTES # (AUTO) 4.8 (1.0-3.2); LYMPHOCYTES % 35.1 % (18.0-39.1); MEAN CORPUSCULAR HEMOGLOBIN 28.1 pg (28-32); MEAN CORPUSCULAR HGB CONC 31.1 g/dL (31-35); MEAN CORPUSCULAR VOLUME 90.4 fL (81-99); MONOCYTES % 7.1 % (4.4-11.3); NEUTROPHILS # (AUTO) 7.2 (2.1-6.9); NEUTROPHILS % 52.7 % (38.7-80.0); PLATELET COUNT 240 x10e3/uL (140-360); RED CELL DISTRIBUTION WIDTH 15.5 % (11.7-14.4)
[2020-06-12 16:29] LABS: INR 0.98; PROTHROMBIN TIME 13.5 seconds (11.9-14.5)
[2020-06-12 16:30] LABS: PARTIAL THROMBOPLASTIN TIME 24.7 seconds (23.8-35.5)
[2020-06-12 16:38] LABS: ALBUMIN 4.3 g/dL (3.5-5.0); ALBUMIN/GLOBULIN RATIO 1.6 (0.8-2.0); ANION GAP 15.6 mmol/L (8-16); CALCIUM 9.9 mg/dL (8.4-10.2); CREATININE, SERUM 2.05 mg/dL (0.72-1.25); MAGNESIUM 1.7 MG/DL (1.3-2.1); POTASSIUM 3.6 mmol/L (3.5-5.1)
[2020-06-12 16:47] LABS: CREATINE KINASE MB 3.6 ng/mL (0-5.0)
[2020-06-12] MEDS ORDERED: ONDANSETRON HCL INJ 2MG/ML 2ML 2 MG/ML VIAL IV PRN (18:30)
[2020-06-12] MEDS ORDERED: SODIUM CHLORIDE 0.9% 1000ML 1,000 ML IV SCH (18:30)
[2020-06-12] MEDS ORDERED: CEFTRIAXONE SOD 1 GM/NS 50 ML 50 ML IV ONE (18:30)
[2020-06-12 18:36] LABS: BILIRUBIN,URINE NEGATIVE (NEGATIVE); CLARITY,URINE SL CLOUDY (CLEAR); COLOR,URINE YELLOW (YELLOW); KETONES,URINE NEGATIVE (NEGATIVE); LEUKOCYTE ESTERASE ,URINE SMALL (NEGATIVE); NITRITE,URINE NEGATIVE (NEGATIVE); PROTEIN,URINE DIPSTICK NEGATIVE (NEGATIVE); URINE UROBILINOGEN 0.2 mg/dL (0.2 - 1)
[2020-06-12 18:48] LABS: BACTERIA,URINE MANY /HPF
[2020-06-12 19:37] VITALS: BP 137/74
[2020-06-12 20:00] VITALS: BP 137/74
[2020-06-12 20:31] VITALS: BP 137/74
[2020-06-12] MEDS ORDERED: DIAZEPAM5 MG PO (22:27)
[2020-06-12] MEDS ORDERED: ACETAMINOPHEN-1 EAC4 PO (22:27)
[2020-06-12] MEDS ORDERED: OMEPRAZOLE40 MG PO (22:27)
[2020-06-12] MEDS ORDERED: METOPROLOL TART25 MG PO (22:27)
[2020-06-12] MEDS ORDERED: CARVEDILOL3.125 MG PO (22:27)
[2020-06-12] MEDS ORDERED: ATORVASTATIN CA40 MG PO (22:27)
[2020-06-12] MEDS ORDERED: ANTARA90 MG PO (22:27)
[2020-06-12] MEDS: MORPHINE SULFATE 2 MG/ML SYR 1ML IV PRN (23:34)
[2020-06-13] VITALS (8 sets, daily range): BP systolic 99–160; BP diastolic 40–68
[2020-06-13 00:24] LABS: CREATINE KINASE MB 4.1 ng/mL (0-5.0)
[2020-06-13 06:19] LABS: BASOPHILS # (AUTO) 0.2 (0.0-0.1); BASOPHILS % 1.2 % (0.0-1.0); EOSINOPHILS # (AUTO) 0.6 (0.0-0.4); EOSINOPHILS % 4.4 % (0.0-6.0); HEMATOCRIT 40.7 % (38.2-49.6); HEMOGLOBIN 12.6 g/dL (14.0-18.0); LYMPHOCYTES # (AUTO) 5.5 (1.0-3.2); LYMPHOCYTES % 39.2 % (18.0-39.1); MEAN CORPUSCULAR HEMOGLOBIN 28.7 pg (28-32); MEAN CORPUSCULAR VOLUME 92.7 fL (81-99); MONOCYTES # (AUTO) 1.1 (0.2-0.8); NEUTROPHILS # (AUTO) 6.5 (2.1-6.9); NEUTROPHILS % 46.6 % (38.7-80.0); PLATELET COUNT 219 x10e3/uL (140-360); RED BLOOD COUNT 4.39 x10e6/uL (4.3-5.7); RED CELL DISTRIBUTION WIDTH 15.5 % (11.7-14.4)
[2020-06-13 06:43] LABS: ALBUMIN/GLOBULIN RATIO 1.6 (0.8-2.0); ANION GAP 17.4 mmol/L (8-16); CALCIUM 9.3 mg/dL (8.4-10.2); CREATININE, SERUM 2.32 mg/dL (0.72-1.25); POTASSIUM 3.4 mmol/L (3.5-5.1)
[2020-06-13 07:00] LABS: CREATINE KINASE MB 3.6 ng/mL (0-5.0)
[2020-06-13 07:56] LABS: ANISOCYTOSIS SLIGHT; EOSINOPHILS % (MANUAL) 7 % (0-7); LYMPHOCYTES % (MANUAL) 29 % (19-48); MONOCYTES % (MANUAL) 7 % (3.4-9.0); NEUTROPHILS % (MANUAL) 52 % (40-74); PLATELET ESTIMATE ADEQUATE; RBC MORPHOLOGY COMMENT NORMAL
[2020-06-13 07:57] LABS: PLATELET MORPHOLOGY COMMENT FEW LARGE
[2020-06-13] MEDS ORDERED: DIAZEPAM 5 MG TAB PO PRN (18:15)
[2020-06-13] MEDS ORDERED: PROVENTIL HFA6.7 GM INH (18:22)
[2020-06-13] MEDS: MORPHINE SULFATE 2 MG/ML SYR 1ML IV PRN (18:27)
[2020-06-13] MEDS ORDERED: ALBUTEROL SULFATE HFA 8GM INHALATION AEROSOL INH PRN (19:15)
[2020-06-13] MEDS: ATORVASTATIN 40 MG TAB PO SCH (20:23)
[2020-06-13] MEDS: FLUTICASONE PROPIONATE NASAL SPRAY NS SCH (20:24)
[2020-06-14] VITALS (8 sets, daily range): BP systolic 109–138; BP diastolic 51–88
[2020-06-14] MEDS: PANTOPRAZOLE SOD 40 MG TABEC PO SCH (08:00)
[2020-06-14] MEDS: FENOFIBRATE MICRONIZED 90 MG PO SCH (09:00)
[2020-06-14] MEDS: FUROSEMIDE 40 MG TAB PO SCH (09:02)
[2020-06-14] MEDS: CARVEDILOL 3.125 MG TAB PO SCH ×2 (09:02→17:11)
[2020-06-14] MEDS: METOPROLOL TARTRATE 25 MG TAB PO SCH ×2 (09:02→17:12)
[2020-06-14] MEDS: FLUTICASONE PROPIONATE NASAL SPRAY NS SCH ×2 (09:02→17:11)
[2020-06-14] MEDS: VALSARTAN 160 MG TAB PO SCH (09:02)
[2020-06-14] MEDS: HYDROCHLOROTHIAZIDE 25 MG TAB PO SCH (09:02)
[2020-06-14] MEDS: BUPROPION HCL 150 MG TABCR PO SCH (09:03)
[2020-06-14] MEDS ORDERED: BISACODYL 10 MG SUPP PR PRN (11:45)
[2020-06-14] MEDS: CEFTRIAXONE SOD 1 GM/NS 50 ML 50 ML IV SCH (12:59)
[2020-06-14] MEDS: MORPHINE SULFATE 2 MG/ML SYR 1ML IV PRN (16:45)
[2020-06-14] MEDS: ATORVASTATIN 40 MG TAB PO SCH (21:39)
[2020-06-15] VITALS (8 sets, daily range): BP systolic 111–140; BP diastolic 55–76
[2020-06-15] MEDS ORDERED: THROMBIN FOR SOLN 5,000 UNIT VIAL ONE (07:07)
[2020-06-15] MEDS ORDERED: VANCOMYCIN HCL 1 GM VIAL ONE (07:07)
[2020-06-15] MEDS ORDERED: LIDOCAINE 1% W/EPINEPHRINE 20 ML VIAL ONE (07:07)
[2020-06-15] MEDS: PANTOPRAZOLE SOD 40 MG TABEC PO SCH (07:30)
[2020-06-15] MEDS ORDERED: LIDOCAINE HCL (LTA) 4 ML SOLN ONE (07:46)
[2020-06-15] MEDS ORDERED: IBUPROFEN 800MG/ 200ML 200 ML IV ONE (07:46)
[2020-06-15] MEDS: CARVEDILOL 3.125 MG TAB PO SCH ×2 (09:00→17:21)
[2020-06-15] MEDS: VALSARTAN 160 MG TAB PO SCH (09:00)
[2020-06-15] MEDS: METOPROLOL TARTRATE 25 MG TAB PO SCH ×2 (09:00→17:22)
[2020-06-15] MEDS: FENOFIBRATE MICRONIZED 90 MG PO SCH (09:00)
[2020-06-15] MEDS ORDERED: SUGAMMADEX SODIUM 200 MG/2 ML VIAL IV ONE (09:47)
[2020-06-15] MEDS ORDERED: CEPACOL SORE THROAT LOZENGES PO PRN (10:00)
[2020-06-15] MEDS ORDERED: MAGNESIUM/ALUMINUM/SIMETHICONE 30 ML UDC PO PRN (10:00)
[2020-06-15] MEDS ORDERED: ONDANSETRON HCL INJ 2MG/ML 2ML 2 MG/ML VIAL IV PRN (10:00)
[2020-06-15] MEDS ORDERED: HYDROMORPHONE 2MG/ML 2 MG/ML ML IV PRN (10:00)
[2020-06-15] MEDS ORDERED: PROMETHAZINE HCL (IM) 25 MG/ML VIAL IM PRN (10:00)
[2020-06-15] MEDS ORDERED: MORPHINE SULFATE INJ 4 MG/ML INJ 1ML IM PRN (10:00)
[2020-06-15] MEDS ORDERED: OXYCODONE/ACETAMINOPHEN 5-325 1 EACH TABLET PO PRN (10:00)
[2020-06-15] MEDS ORDERED: ACETAMINOPHEN 325 MG TAB PO PRN (10:00)
[2020-06-15] MEDS ORDERED: CARISOPRODOL 350 MG TAB PO PRN (10:00)
[2020-06-15] MEDS ORDERED: ZOLPIDEM TARTRATE 5 MG TAB PO PRN (10:00)
[2020-06-15] MEDS: CEFTRIAXONE SOD 1 GM/NS 50 ML 50 ML IV SCH (10:38)
[2020-06-15] MEDS: FUROSEMIDE 40 MG TAB PO SCH (11:23)
[2020-06-15] MEDS: HYDROCHLOROTHIAZIDE 25 MG TAB PO SCH (11:23)
[2020-06-15] MEDS: FLUTICASONE PROPIONATE NASAL SPRAY NS SCH ×2 (11:23→17:21)
[2020-06-15] MEDS: BUPROPION HCL 150 MG TABCR PO SCH (11:23)
[2020-06-15] MEDS: LACTATED RINGER'S 1,000 ML IV SCH ×2 (11:23→21:54)
[2020-06-15] MEDS ORDERED: SEVOFLURANE INHAL SOLN 250 ML PEN BTL ONE (12:09)
[2020-06-15] MEDS ORDERED: ROCURONIUM BROMIDE 10 MG/ML 5ML VIAL IV ONE (12:09)
[2020-06-15] MEDS ORDERED: EPHEDRINE SULFATE INJ 50 MG/ML VIAL ONE (12:09)
[2020-06-15] MEDS ORDERED: LIDOCAINE HCL 2% LOCAL INJ 5 ML SDV VIAL INJ ONE (12:09)
[2020-06-15] MEDS ORDERED: ONDANSETRON HCL INJ 2MG/ML 2ML 2 MG/ML VIAL ONE (12:09)
[2020-06-15] MEDS ORDERED: DEXAMETHASONE SOD PHOS INJ 4 MG/ML VIAL ONE (12:09)
[2020-06-15] MEDS ORDERED: NEOSTIGMINE 1 MG/ML 10ML VIAL ONE (12:09)
[2020-06-15] MEDS ORDERED: LIDOCAINE HCL 2% JELLY 5 ML TUBE ONE (12:09)
[2020-06-15] MEDS ORDERED: PROPOFOL IV EMULSION 10 MG/ML 20 ML VIAL ONE (12:09)
[2020-06-15] MEDS ORDERED: GLYCOPYRROLATE INJ 0.2 MG/ML VIAL ONE (12:09)
[2020-06-15] MEDS ORDERED: FENTANYL CITRATE/PF 100MCG/2 ML INJ ONE (13:24)
[2020-06-15] MEDS: MORPHINE SULFATE 2 MG/ML SYR 1ML IV PRN (16:10)
[2020-06-15] MEDS: CEFAZOLIN SOD 1 GM/NS 50ML 50 ML IV SCH (17:21)
[2020-06-15] MEDS: ATORVASTATIN 40 MG TAB PO SCH (21:00)
[2020-06-16] VITALS: BP 108/54
[2020-06-16] MEDS: CEFAZOLIN SOD 1 GM/NS 50ML 50 ML IV SCH ×2 (01:00→09:06)
[2020-06-16] MEDS: LACTATED RINGER'S 1,000 ML IV SCH ×2 (03:59→13:35)
[2020-06-16 04:00] VITALS: BP 109/63
[2020-06-16] MEDS: MORPHINE SULFATE 2 MG/ML SYR 1ML IV PRN (04:50)
[2020-06-16 08:00] VITALS: BP 118/84
[2020-06-16] MEDS: CARVEDILOL 3.125 MG TAB PO SCH (09:00)
[2020-06-16] MEDS: FENOFIBRATE MICRONIZED 90 MG PO SCH (09:00)
[2020-06-16] MEDS: PANTOPRAZOLE SOD 40 MG TABEC PO SCH (09:06)
[2020-06-16] MEDS: FLUTICASONE PROPIONATE NASAL SPRAY NS SCH (09:07)
[2020-06-16] MEDS: FUROSEMIDE 40 MG TAB PO SCH (09:09)
[2020-06-16] MEDS: METOPROLOL TARTRATE 25 MG TAB PO SCH (09:09)
[2020-06-16] MEDS: BUPROPION HCL 150 MG TABCR PO SCH (09:09)
[2020-06-16] MEDS: HYDROCHLOROTHIAZIDE 25 MG TAB PO SCH (09:09)
[2020-06-16] MEDS: VALSARTAN 160 MG TAB PO SCH (09:09)
[2020-06-16] MEDS ORDERED: POTASSIUM CHLORIDE 10MEQ EA PO ONE (10:30)
[2020-06-16 11:04] VITALS: BP 117/64
[2020-06-16] MEDS: CEFTRIAXONE SOD 1 GM/NS 50 ML 50 ML IV SCH (11:41)
[2020-06-16] MEDS ORDERED: NORCO 7.5-3251 EACH PO (11:55)
[2020-06-16] MEDS ORDERED: ONDANSETRON HCL 4 MG ORAL DISINTEGRATING TAB PO PRN (12:30)
== END 2020-06-16 15:28 | DRG 516 ==
LOC: ER 16:00 → ERHOLD 18:22 → MED/SURG3 19:46 → UNDODISIN 06-16 15:05
PROC: 01NB0ZZ Release Lumbar Nerve, Open Approach (ICD-10-PCS; principal; 2020-06-15 08:30)
DX: M48.062 Spinal stenosis, lumbar region with neurogenic claudication (principal); N39.0 Urinary tract infection, site not specified; B91 Sequelae of poliomyelitis; Z11.59 Encounter for screening for other viral diseases; I25.10 Atherosclerotic heart disease of native coronary artery without angina pectoris; I12.9 Hypertensive chronic kidney disease with stage 1 through stage 4 chronic kidney disease, or unspecified chronic kidney disease; N18.3 Chronic kidney disease, stage 3 (moderate); G47.33 Obstructive sleep apnea (adult) (pediatric); Z95.5 Presence of coronary angioplasty implant and graft; Z74.09 Other reduced mobility
CPT/HCPCS: 36415; 70450; 70551; 71045; 72020; 72131; 72141; 72148; 80053; 81001; 82550; 82553; 82948; 83735; 83880; 84484; 85025; 85610; 85651; 85730; 87040; 87086; 87186; 88304; 93005; 93925; 97139; 99251; 99284; J0690; J0696; J1100; J2001; J2270; J2405; J2710; J3010; J3370; J7030; J7121; U0002